=== PATIENT | male | born 1995 | race Caucasian/White ===

== ENCOUNTER 2023-07-08 17:15 | Emergency (ER) | payer OTHER, SELFPAY ==
[2023-07-08 17:30] VITALS: BP 127/82
[2023-07-08 17:48] LABS: % Basophils 0.7 % (0-2); % Eosinophils 2.7 % (0-6); % Immature Granulocytes 0.4 % (0-0.5); % Lymphocytes 34.2 % (20.5-51.1); % Monocytes 10.4 % (1.7-9.3); % Neutrophils 51.6 % (42.2-75.2); Absolute Basophils 0.1 10^3/uL (0-0.2); Absolute Eosinophils 0.2 10^3/uL (0-0.7); Absolute Lymphocytes 2.5 10^3/uL (1.2-3.4); Absolute Monocytes 0.8 10^3/uL (0.1-0.6); Absolute Neutrophils 3.8 10^3/uL (1.4-6.5); Hematocrit 43.3 % (39.0-52.0); Hemoglobin 14.9 g/dL (13.0-18.0); Mean Corp Hgb Conc. 34.4 g/dL (33.0-37.0); Mean Corpuscular Hgb 28.9 pg (27.0-31.0); Mean Corpuscular Volume 84.1 fL (80.0-94.0); Mean Platelet Volume 9.7 fL (7.4-10.4); Nucleated Red Blood Cells % 0 % (-); Platelet Count 215 10^3/uL (130-400); Red Blood Cell Count 5.15 10^6/uL (4.70-6.10); Red Cell Dist. Width 12.2 % (11.5-14.5); White Blood Cell Count 7.4 10^3/uL (4.8-10.8)
[2023-07-08 18:01] LABS: ALT (SGPT) 23 U/L (0-50); AST (SGOT) 26 U/L (17-59); Albumin 4.7 g/dl (3.5-5.0); Alkaline Phosphatase 57 U/L (38-126); Blood Urea Nitrogen 16 mg/dl (9-20); Calcium 9.9 mg/dl (8.4-10.2); Carbon Dioxide 28 mmol/L (22-30); Chloride 102 mmol/L (98-107); Glucose 96 mg/dl (70-99); Lipase 82 U/L (23-300); Potassium 3.9 mmol/L (3.5-5.1); Sodium 134 mmol/L (135-145); Total Bilirubin 0.9 mg/dl (0.2-1.3); Total Protein 7.5 g/dl (6.3-8.2); eGFR > 60.00
--- NOTE | 2023-07-08 19:06 | ED.GENMED ---
History of Present Illness
General
Chief Complaint: Abdominal Pain
Time Seen by Provider: 07/08/23 18:58
Travel History
Have you had any contact with someone who has COVID-19?: No
Do you have any symptoms of coronavirus? Fever > 100 degrees, chills, cough, shortness of breath, sore throat, loss of taste or smell, muscle aches, or headache?: No
History of Present Illness
History of Present Illness:
27-year-old male with no significant past medical history presents to the emergency department for evaluation of generalized abdominal pain beginning abruptly this morning. Pain is sharp in nature, colicky, no obvious modifying factors. Localizes
the pain predominantly to the lower abdomen but does radiate upward. Denies any fever, chills, sweats, nausea, vomiting, or diarrhea. No history abdominal surgery. No urinary tract voiding symptoms. Denies any ill contacts at home
Review of Systems
Review of Systems
Allergies reviewed?: Yes
All Other Systems: ROS reviewed and negative except as documented in HPI and ROS
Phy Exam
Physical Exam
Physical Exam:
GEN: Well appearing, NAD, WDWN
HEENT: Oral mucosa moist, no scleral icterus
Cardiac: Regular rate and rhythm, no murmurs
Lung: No respiratory distress, no tachypnea
Abdomen: Soft, minimally tender to the suprapubic and right lower quadrant, no rigidity or peritoneal signs
MSK: No gross deformity or injuries
Skin: Good color, no pallor or jaundice, no rashes
Neuro: AO x3, moves all extremities freely
Psych: Calm, cooperative
Course
Orders/Labs/Results
Orders:
Orders
07/08/23 17:38
Complete Blood Count/With Diff Urgent
Comprehensive Metabolic Panel Urgent
Lipase Urgent
07/08/23 19:05
CT Abd/Pel (IV only)-DH only Urgent
Comment: no prior surgery
Reason For Exam: lower abd pain
IV Insert/Care/Rem.- Treatment PRN
Abnormal Lab Results
07/08/23
17:38
Absolute Monos (auto) 0.8 H 10^3/uL
(0.1-0.6)
Monocytes % 10.4 H %
(1.7-9.3)
Sodium 134 L mmol/L
(135-145)
07/08/23 17:38
07/08/23 17:38
Vital Signs
Initial and Last Documented VS:
Initial Vital Signs
Temp Pulse Resp BP Pulse Ox
98.6 F 56 18 127/82 100
07/08/23 17:30 07/08/23 17:30 07/08/23 17:30 07/08/23 17:30 07/08/23 17:30
Last Documented Vital Signs
Temp Pulse Resp BP Pulse Ox
98.6 F 56 18 127/82 100
07/08/23 17:30 07/08/23 17:30 07/08/23 17:30 07/08/23 17:30 07/08/23 17:30
MDM/Problems Addressed
MDM/Problems Addressed:
Patient's labs and CT scan are unremarkable, unclear etiology to pain
*Critical Care Note
Total Time (30-74mins, 75-104mins- exclusive of procedures): Not Applicable
ED Attending Note
-
Portions of this chart may have been created with voice recognition software.� Occasional wrong word or��sound alike� substitutions may have occurred due to the inherent limitations of voice recognition software.
Discharge Plan
Departure
Patient Disposition: Home (Routine Discharge)
Date of Disposition: 07/08/23
Time of Disposition: 20:21
Patient with high blood pressure during this ER visit?: No
Discharge Problem:
Acute generalized abdominal pain
Instructions: Abdominal Pain
Referrals:
NONE,* [Family Provider] -
Interventions
Interventions:
*Risk Screen - Suicide Last Done: 07/08/23 17:32
*General Assessment Last Done: 07/08/23 17:32
*Neglect/Abuse Screening Last Done: 07/08/23 17:32
ED- Fall Risk Assessment Last Done: 07/08/23 20:40
*Nursing Disposition Last Done: 07/08/23 20:40
MR-Ndvirq-Tinhavnbgy Assessment Last Done: 07/08/23 19:11
Discharge Date and Time
Discharge Date/Time: 07/08/23 20:41
== END 2023-07-08 20:41 | disposition home or self-care (01) ==
LOC: EMR 17:15
PROVIDERS: Emergency Medicine; EMERGENCY PHYSICIAN Emergency Medicine
DX: R10.84 Generalized abdominal pain (principal)
CPT/HCPCS: 99285; 74177; 80053; 83690; 85025; Q9967